=== PATIENT | female | born 1990 | race Caucasian/White ===

== ENCOUNTER 2020-04-11 16:17 | Emergency (ER) | payer MEDICAID ==
[~2020-04-11] VITALS: Ht 170.2 cm; Wt 65.8 kg
[2020-04-11 16:20] VITALS: BP 123/70
--- NOTE | 2020-04-11 16:28 | NUR ---
AMBULATED TO BED 3
--- NOTE | 2020-04-11 16:35 | NUR ---
PATIENT PRESENTS TO ED WITH HEADACHE SINCE FRIDAY, DESCRIBES 10/10 PRESSURE AROUND HEAD, TENSION MIGRAINE . PT STATES SHE HAS HX OF MIGRAINES, BUT THIS ONE FEELS DIFFERENT. PT DENIES ANY PAIN BUT REPORTS HEAVY PRESSURE AROUND HEAD. PATIENT STATES SHE HAS BEEN VOMITING ON/OFF SINCE FRIDAY AND HAS BEEN TAKING IBUPROFEN 800MG WITH NO RELIEF OF PRESSURE; SKIN IS PINK/WARM/DRY; AAOX4 WITH EVEN AND STEADY GAIT; LUNGS CLEAR BL; HR EVEN AND REGULAR; PT DENIES ANY FEVER, CP, SOB, OR COUGH AT THIS TIME; PATIENT STATES PAIN OF 0/10 AT THIS TIME; VSS; PATIENT POSITIONED FOR COMFORT; HOB ELEVATED; BEDRAILS UP X2; BED DOWN. ER MD MADE AWARE OF PT STATUS.
[2020-04-11] MEDS: NACL 0.9% 1,000 ML IV ONE (16:58)
[2020-04-11] MEDS: diphenhydrAMINE 50 MG/ML VIAL IVP ONE (16:58)
[2020-04-11] MEDS: KETOROLAC 30 MG/ML VIAL IVP ONE (16:59)
[2020-04-11] MEDS: METOCLOPRAMIDE 10 MG/2 ML INJ VIAL IVP ONE (16:59)
--- NOTE | 2020-04-11 17:22 | NUR ---
Patient appears to be resting comfortably in bed. Vital Signs within normal limits. Respirations even and unlabored.
--- NOTE | 2020-04-11 17:31 | NUR ---
PT TAKEN TO CT VIA WHEELCHAIR
--- NOTE | 2020-04-11 17:41 | NUR ---
PT IS BACK FROM CT SCAN
--- NOTE | 2020-04-11 18:11 | NUR ---
PT STATES SHE IS NO LONGER FEELING HEAD PAIN OR NAUSEA
[2020-04-11 18:32] VITALS: BP 123/70
--- NOTE | 2020-04-11 18:32 | NUR ---
Patient discharged with v/s stable. Written and verbal after care instructions given and explained. Patient alert, oriented and verbalized understanding of instructions. Ambulatory with steady gait. All questions addressed prior to discharge. ID band removed. Patient advised to follow up with PMD. Rx of REGLAN, MACROBID, FIORICET given. Patient educated on indication of medication including possible reaction and side effects. Opportunity to ask questions provided and answered.
[2020-04-11 20:36] LABS: APPEARANCE,URINE HAZY (CLEAR); COLOR,URINE YELLOW (YELLOW)
[2020-04-11 20:37] LABS: BILIRUBIN,URINE NEGATIVE (NEGATIVE); BLOOD, URINE NEGATIVE (NEGATIVE); UGLUCOSE NEGATIVE (NEGATIVE)
[2020-04-11 20:38] LABS: LEUKOCYTE ESTERASE ,URINE NEGATIVE (NEGATIVE); NITRITE, URINE POSITIVE (NEGATIVE)
[2020-04-11 20:39] LABS: RBC,URINE 0-5 /HPF (0-5); WBC,URINE 16-25 (MOD) /HPF (0-5)
--- NOTE | 2020-04-12 13:47 | NUR ---
CONFIRMED WITH RN END TIME OF NORMAL SALINE 1063 04/11/20
--- NOTE | 2020-04-14 13:39 | NUR ---
Urine culture received from lab. Culture and sensitivity received and shown to Dr. Trinh. No new orders received. Treatment appropriate. No further care needed. Copy of C&S placed in discrepancy folder.
== END 2020-04-11 18:32 | disposition home or self-care (01) ==
LOC: MED 16:17
DX: R51.9 Headache, unspecified (principal); N39.0 Urinary tract infection, site not specified
CPT/HCPCS: 70450; 81001; 81025; 87086; 96361; 96374; 96375; 99284; J1200; J1885; J2765; J7030